=== PATIENT | female | born 1970 | race Two or more races ===

== ENCOUNTER 2024-04-07 10:34 | Emergency (ER) | payer OTHER ==
[~2024-04-07] VITALS: Ht 157.5 cm; Wt 71.2 kg
[2024-04-07] MEDS ORDERED: LOSARTAN POTAS100 MG PO (11:48)
[2024-04-07] MEDS ORDERED: AMLODIPINE-OLM1 EACH PO (11:48)
[2024-04-07] MEDS ORDERED: JARDIANCE10 MG PO (11:49)
[2024-04-07] MEDS ORDERED: TRESIBA100 UNIT/1 SUBCUTANEO (11:49)
[2024-04-07] MEDS ORDERED: NOVOLOG100 UNIT/1 SUBCUTANEO (11:49)
[2024-04-07] MEDS ORDERED: ORPHENADRINE CITRATE 30 MG/ML AMPUL IM STA (12:43)
[2024-04-07] MEDS ORDERED: DEXAMETHASONE SODIUM PHOSPHATE 4 MG/ML VIAL IM STA (12:43)
== END 2024-04-07 13:01 | disposition home or self-care (01) ==
LOC: ER 10:36
DX: M54.31 Sciatica, right side (principal); I10 Essential (primary) hypertension; E11.9 Type 2 diabetes mellitus without complications; Z79.4 Long term (current) use of insulin; Z79.84 Long term (current) use of oral hypoglycemic drugs